=== PATIENT | male | born 1980 | race Caucasian/White ===

== ENCOUNTER 2020-02-17 12:34 | Emergency (ER) | payer BC ==
--- NOTE | 2020-02-17 12:40 | PDOC ---
History of Present Illness - General Chief Complaint: Pain Stated Complaint: ABD PAIN Time Seen by Provider: 02/17/20 12:38 History Source: Patient Exam Limitations: No Limitations - History of Present Illness Initial Comments: 02/17/20 12:39 HPI 39-year-old male with gastric bypass surgery presenting with left groin and back pain x2 weeks. He states the pain is sharp, worse with movement in his left groin, today started radiating to the left lower back. He has intermittent ankle pains associated with his symptoms. He admits symptoms are also worse with morning and nighttime; denies any trauma or strenous activity he took aleve earlier this morning at 9AM, with relief. he went to urgent care yesterday afternoon, had been referred to the ED for CT imaging at that time; however pt states his symptoms improved and did not feel he needed to go at that time. currently asymptomatic. Denies fever, chills, chest pain, SOB, palpitation, dizziness, weakness, N, V, D, abdominal pain, bladder and bowel problems, focal weakness/paresthesias, leg swelling/pain, rash. No sick contacts or travel. No new changes in medications. No suspicious food intake Allergies: None Past Medical History/PSH: gastric bypass Social history: Lives with family. No tobacco, ETOH or drug use. Meds: as documented in EMR Review of systems Constitutional: no fevers or chills. No weakness HEENT: no headache or dizziness. No congestion. No visual/hearing disturbances. CVS: no cp or syncope. Resp: no sob. No cough. Gastrointestinal: no abdominal pain, nausea, vomiting, diarrhea. +groin pain, +back pain Genitourinary: no urinary sx, hematuria. no frequency or urgency. MUSCULOSKELETAL: No joint pain and swelling. No neck pain. +back pain. SKIN: no redness or skin changes, no discharge, no rash. No wounds. Hematologic: no easy bruising/bleeding. NEUROLOGIC: No headache, dizziness, LOC or altered mental status. No weakness, numbness or tingling. Psych: no anxiety or depression Allergic/Immunologic: no allergies All other systems reviewed and negative, or as documented in HPI. Physical exam General: Well appearing, awake and alert, NAD. HEENT: NCAT, PERRL, EOMI, clear conjunctiva, anicteric, moist mucus membranes, clear oropharynx, no oral lesions.. Neck: neck supple, FROM Resp: CTAB, normal and even respirations, no respiratory distress CVS: RRR, no murmurs, 2+ peripheral pulses throughout, no peripheral edema Abdomen: soft, +periumbilical tenderness, no rebound or guarding. : normal external genitalia, no hernias palpated with valsalva. no testicular or scrotal swelling/tenderness, normal lie. Back: nontender, normal inspection and ROM MSK: no edema, GUTIERRES x4, ROM intact. No clubbing or cyanosis. normal bulk and tone. Extremities: no calf tenderness Neuro: alert, oriented appropriately; no focal neurologic deficits Psych: Calm and cooperative Skin: warm and well perfused, cap refill <2 sec, normal color, no rash or skin discoloration. 02/17/20 13:01 02/17/20 15:04 02/17/20 15:24 Past History - Medical History Allergies/Adverse Reactions: Allergies Allergy/AdvReac Type Severity Reaction Status Date / Time No Known Allergies Allergy Verified 02/17/20 12:35 Home Medications: Ambulatory Orders Zolpidem Tartrate [Ambien Cr] 12.5 mg PO HS 02/17/20 ED Treatment Course - LABORATORY CBC & Chemistry Diagram: 02/17/20 13:54 02/17/20 13:54 Medical Decision Making - Medical Decision Making 02/17/20 15:02 Vital Signs Temp Pulse Resp BP Pulse Ox 98 F 79 20 150/100 97 02/17/20 12:34 02/17/20 12:34 02/17/20 12:34 02/17/20 12:34 02/17/20 12:34 DDx abdominal pain: Renal colic, biliary colic, metabolic/electrolyte derangements. GERD, PUD, esophageal spasm, pancreatitis, hepatitis, constipation, colitis, gastroenteritis, cholecystitis, UTI, pyelonephritis, ileus, SBO, medication side effect, hernia, appendicitis, diverticulitis, mesenteric ischemia. msk strain, mesenteric adenitis, psoas abscess. msk strain, IT band syndrome, hip flexor strain no gib exam is normal, doubt testicular or scrotal pathology. vitals reviewed and wnl labs and lytes wnl. normal lfts and lipase CT a/p with PO/IV contrast (prior gastric bypass) and given periumbilical, LLQ pain? to eval for intra abdominal pathology declines analgesia at this time IVF to flush kidneys 02/17/20 15:25 CT with incidental gallstones and nephrolithiasis, not obstruction no diverticulitis and no intra abdominal pathology d/w with pt, this is most likely msk strain/hip flexor strain given his clinical sx and exam pt verbalized understanding of impression and plan. On repeat examination prior to discharge, the patient has a soft abdomen with no peritoneal findings. The patient was able to tolerate oral intake. The patient was advised that even though there is no evidence of a surgical emergency at this time, sometimes this is not visible on CT scan or in the labs early in a disease course and that if there is additional pain they are to return for repeat evaluation. The patient stated understanding of this, has decision making capacity and is discharged in stable condition. The patient was instructed to return to the emergency department for re-evaluation in 8-12 hours and sooner if they feel worse in any way. - ortho followup given. return precautions rest and phys activity as tolerated, stretching and ROM exercises encouraged Discharge - Discharge Information Problems reviewed: Yes Clinical Impression/Diagnosis: Nephrolithiasis Strain of flexor muscle of left hip Qualifiers: Encounter type: initial encounter Qualified Code(s): S76.012A - Strain of muscle, fascia and tendon of left hip, initial encounter Condition: Improved Disposition: HOME - Admission No - Follow up/Referral Referrals: Gerson Evans MD [Staff Physician] - Leonel Delgadillo DO [Staff Physician] - Dilip Ward MD [Staff Physician] - [facility] [place] [Provider Group] [facility] [Provider Group] - Patient Discharge Instructions Patient Printed Discharge Instructions: DI for Muscle Strain, DI for Groin Strain Additional Instructions: your labs are normal you have incidental kidney stones, but are not causing your symptoms. your CT scan otherwise normal You most likely have musculoskeletal strain of your left hip flexor muscles Avoid heavy lifting or strenuous activity to minimize further injury This should heal over the next 3-5 days. RICE rest ice elevate the affected area Rest, Ice (20 minutes at a time, 3 times a day), Compression ([place] wrap or splint), Elevation (above the heart). Apply ice to the area for 10 minutes every 2 hours for the first 2 days after the injury to reduce swelling. continue with range of motion exercises, as this will facilitate the healing process; avoid being bed bound and immobile. If you have any worsening of symptoms, including severe pain/swelling/redness/numbness/changes in sensation/weakness/paralysis or any other concerns please return to the Emergency Department immediately. You were given a copy of the results from any tests performed today in the Emergency Department which have results available. Show these to your doctor(s). Some of the tests we sent may not have results yet so please call or have your doctor call the Emergency Department to follow up on all results. Please continue taki ng your home medications as directed. Do not use alcohol when taking any medication (especially antibiotics, tylenol or other pain medication) unless you check with the doctor or pharmacist. -May take ibuprofen 400-600mg and/or tylenol 650 to 975 mg every 6 hours as needed for mild to moderate pain, available over the counter. This does not require narcotics, as it will precipitate injuries and falls. - Range of motion exercises encouraged Please follow up with your primary doctor(s) within the next 1 week, but seek medical care sooner if your symptoms persist or worsen. Please call as soon as possible for an appointment. If you cannot follow up with your doctor please return to the Emergency Department for any urgent issues. Follow up with your primary care physician in 1 week if symptoms persist, or with orthopedics specialists if needed, referrals have been provided. - Post Discharge Activity
[2020-02-17 12:54] VITALS: BP 150/100; PULSE 79; TEMP 98; BMI 31.4
[2020-02-17] MEDS ORDERED: SODIUM CHLORIDE 1,000 ML IV STA (13:02)
[2020-02-17 14:22] LABS: BASO % 2.5 % (0-2.0); EOS % 0.7 % (0-4.5); HEMATOCRIT 42.7 % (35.4-49); HEMOGLOBIN 14.6 GM/dl (11.7-16.9); LYMPH % 23.6 % (8-40); MCH 30.4 pg (25.7-33.7); MCHC 34.2 g/dl (32.0-35.9); MEAN CELL VOLUME 88.9 fl (80-96); MEAN PLT VOLUME 8.9 fl (7.5-11.1); MONO % 7.8 % (3.8-10.2); NEUT % 65.4 % (42.8-82.8); PLATELET COUNT 363 K/MM3 (134-434); RDW 11.9 % (11.9-15.9); WHITE BLOOD COUNT 8.4 K/mm3 (4.0-10.8)
[2020-02-17 14:27] LABS: ALBUMIN 3.8 g/dl (3.4-5.0); BILIRUBIN,TOTAL 0.7 mg/dl (0.2-1); CALCIUM 9.1 mg/dl (8.5-10); CREATININE 0.9 mg/dl (0.55-1.3); TOT PROT 7.2 g/dl (6.4-8.2)
== END 2020-02-17 15:25 | disposition home or self-care (01) ==
LOC: FER 12:34
PROC: 3E0337Z Introduction of Electrolytic and Water Balance Substance into Peripheral Vein, Percutaneous Approach (ICD-10-PCS; principal; 2020-02-17)
DX: N20.0 Calculus of kidney (principal); S76.012A Strain of muscle, fascia and tendon of left hip, initial encounter
CPT/HCPCS: 36415; 74177-TC; 80053; 81003; 83690; 85025; 99285-25; Q9967